=== PATIENT | female | born 1925 | race Caucasian/White ===

== ENCOUNTER → 2016-05-24 | Outpatient (CLI) | payer MEDICARE, BC | END | disposition disaster alternative care site (69) | LOC: GAMB 12:22 | DX: S79.912A Unspecified injury of left hip, initial encounter (principal); S72.002A Fracture of unspecified part of neck of left femur, initial encounter for closed fracture; I10 Essential (primary) hypertension; E78.5 Hyperlipidemia, unspecified; Z90.89 Acquired absence of other organs; Z79.899 Other long term (current) drug therapy; Z88.0 Allergy status to penicillin; Z88.8 Allergy status to other drugs, medicaments and biological substances; W19.XXXA Unspecified fall, initial encounter | CPT/HCPCS: A0422; A0425; A0426; A0888; J3010 ==